=== PATIENT | female | born 1950 | race Two or more races ===

== ENCOUNTER 2017-07-01 20:37 | Emergency (ER) | payer MEDICARE ==
[2017-07-01] MEDS ORDERED: predniSONE TAB* 20 MG PO ONE (21:39)
--- NOTE | 2017-07-01 21:39 | ED ---
Respiratory - HPI Summary HPI Summary: 67F presents with cough for 3 weeks. She states she was on an antibiotic (does not know name) and had no relief. She followed up with her PCP Monday and was switched to levaquin and has no relief with this. She admits to a productive cough and occasionally chills and fever. She admits to SOB and chest congestion. She admits to occasionally sinus congestion. She denies any sore throat or ear pain. She denies any abdominal pain, n/v. She is not DM and does not smoker. She states she has COPD and asthma and is on advair for such. She has been using her inhaler every 4 hours without relief. She states the cough has not improved over past 3 weeks and has gotten worst especially at night. She was never told she has pneumonia. - History of Current Complaint Chief Complaint: EDUpperRespComplaint Stated Complaint: DX BRONCHITIS/SOB/COUGH/WHEEZING Time Seen by Provider: 07/01/17 21:25 Pain Intensity: 5 - Allergy/Home Medications Allergies/Adverse Reactions: Allergies Allergy/AdvReac Type Severity Reaction Status Date / Time No Known Allergies Allergy Verified 07/01/17 20:49 PMH/Surg Hx/FS Hx/Imm Hx Endocrine/Hematology History: Denies: Hx Diabetes, Hx Thyroid Disease Cardiovascular History: Reports: Hx Hypertension, Other Cardiovascular Problems/ Disorders - HIGH CHOLESTEROL ON MEDICATION Denies: Hx Pacemaker/ICD Respiratory History: Reports: Hx Asthma - mild Denies: Hx Chronic Obstructive Pulmonary Disease (COPD) GI History: Reports: Hx Irritable Bowel Denies: Hx Ulcer History: Denies: Hx Renal Disease Musculoskeletal History: Reports: Hx Tendonitis - LEFT SHOULDER Sensory History: Reports: Hx Cataracts, Hx Contacts or Glasses - GLASSES Denies: Hx Hearing Aid Opthamlomology History: Reports: Hx Cataracts, Hx Contacts or Glasses - GLASSES Psychiatric History: Reports: Hx Anxiety Denies: Hx Panic Disorder - Surgical History Surgery Procedure, Year, and Place: RIGHT ELBOW-[facility]. ORIF RIGHT ANKLE WITH PLATING AND SCREWS WERE REMOVED-[facility]. TUBAL LIGATION Hx Anesthesia Reactions: No Infectious Disease History: Denies: Hx Hepatitis, Hx Human Immunodeficiency Virus (HIV), History Other Infectious Disease, Traveled Outside the [place] in Last 30 Days - Family History Known Family History: Positive: Other - Maternal: [place] at age 72 as result of. - Social History Alcohol Use: Occasionally Substance Use Type: Reports: None Hx Tobacco Use: No Smoking Status (MU): Never Smoked Tobacco Review of Systems Positive: Fever Positive: Chest Pain - chest congestion Positive: Shortness Of Breath, Cough Negative: Abdominal Pain All Other Systems Reviewed And Are Negative: Yes Physical Exam Triage Information Reviewed: Yes Vital Signs On Initial Exam: Initial Vitals Temp Pulse Resp BP Pulse Ox 98.6 F 85 16 170/96 96 07/01/17 20:44 07/01/17 20:44 07/01/17 20:44 07/01/17 20:44 07/01/17 20:44 Vital Signs Reviewed: Yes Appearance: Positive: Well-Appearing Skin: Positive: Warm, Dry Head/Face: Positive: Normal Head/Face Inspection Eyes: Positive: Normal, EOMI, KANIKA, Conjunctiva Clear ENT: Positive: Normal ENT inspection, Pharynx normal, Nasal congestion, TMs normal Neck: Positive: Supple, Nontender, No Lymphadenopathy Respiratory/Lung Sounds: Positive: Breath Sounds Present, Wheezes Cardiovascular: Positive: Normal, RRR Diagnostics - Vital Signs Vital Signs Temp Pulse Resp BP Pulse Ox 07/01/17 20:44 98.6 F 85 16 170/96 96 - Laboratory Result Diagrams: 07/01/17 21:47 07/01/17 21:47 Lab Statement: Any lab studies that have been ordered have been reviewed, and results considered in the medical decision making process. - Radiology chest Xray Interpretation: No Acute Changes Radiology Interpretation Completed By: ED Physician Disposition - Course Course Of Treatment: 67F presents with cough for 3 weeks. She states she was on an antibiotic (does not know name) and had no relief. She followed up with her PCP Monday and was switched to levaquin and has no relief with this. She admits to a productive cough and occasionally chills and fever. She admits to SOB and chest congestion. She admits to occasionally sinus congestion. She denies any sore throat or ear pain. She denies any abdominal pain, n/v. She is not DM and does not smoker. She states she has COPD and asthma and is on advair for such. She has been using her inhaler every 4 hours without relief. She states the cough has not improved over past 3 weeks and has gotten worst especially at night. on exam has expiratory wheezes present. chest xray read as normal be me. wbc 12. lactic normal. will add on steriod even though inc risk of tendon rupture risk outweight benefit as patient not improving. will do for 5 days and have follow up with primary. gave cough medication and patient needs refill for advair. patient understands and agrees with plan. - Differential Dx - Cardiopulmonary Differential Diagnoses - Cardiopulmonary: Asthma, Bronchitis, Lower Resp Infection - Diagnoses Provider Diagnoses: Bronchitis, Asthma Discharge - Discharge Plan Condition: Good Disposition: HOME Prescriptions: Fluticasone-Salmeterol 500-50* [Advair Diskus 500-50*] 1 puff INH BID #1 diskus guaiFENesin/CODIEN 100MG-10MG* [Robitussin AC 100Mg-10Mg*] 5 ml PO Q6H PRN #100 ml MDD 20ml PRN Reason: Cough predniSONE TAB* [Deltasone TAB*] 60 mg PO DAILY #12 tab Patient Education Materials: Acute Bronchitis (ED) Referrals: Mekhi Pollack MD [Primary Care Provider] - Additional Instructions: Take cough medication 5ml (1 teaspoon) every 6 hours as needed cough, caution can make drowsy so start with at night only Take steriod once a day for 4 more days Use humidifier or place warm bowls of water around the room to prevent cough Cough can last up to 4 weeks Follow up with primary care physician in 5 days Return to ED if develop any new or worsening symptoms
[2017-07-01] MEDS ORDERED: Albuterol/Ipratropium NEB.SOL* Albuterol 2.5 MG/Ipratropium 0.5 MG 3 ML INH ONE (21:49)
[2017-07-01 22:12] LABS: Hematocrit 43 % (35-47); Hemoglobin 14.4 g/dl (12.0-16.0); Mean Corpuscular HGB Conc 34 g/dl (31-36); Mean Corpuscular Hemoglobin 30 pg (27-31); Mean Corpuscular Volume 89 fL (80-97); Mean Platelet Volume 9 um3 (7.4-10.4); Red Blood Count 4.79 10^6/ul (4.0-5.4); Red Cell Distribution Width 13 % (10.5-15)
[2017-07-01 22:30] LABS: Albumin 3.9 g/dL (3.2-5.2); BUN/Creatinine Ratio 19.5 (8-20); EGFR African American 89.4 (>60); EGFR Non-African American 69.5 (>60); Total Bilirubin 0.4 mg/dL (0.2-1.0); Total Protein 6.9 g/dL (6.4-8.9)
[2017-07-01] MEDS ORDERED: guaiFENesin/CODIEN 100MG-10MG* 5 ML UDC PO ONE (22:46)
[2017-07-01 22:50] LABS: Potassium 3.3 mmol/L (3.5-5.0)
--- NOTE | 2017-07-01 22:53 | RAD ---
INDICATION: Cough and fever. COMPARISON: Comparison is made with prior studies from August 14, 2014 and June 26, 2017. TECHNIQUE: Dual-energy PA and lateral views of the chest were obtained. FINDINGS: The heart is within normal limits in size. Mediastinal and hilar contours appear within normal limits. The lungs are slightly hyperinflated and clear. No pleural effusion is seen. IMPRESSION: NO EVIDENCE FOR ACTIVE CARDIOPULMONARY DISEASE.
[2017-07-01 23:18] VITALS: BP 154/87
== END 2017-07-01 23:17 | disposition home or self-care (01) ==
LOC: ED 20:37
DX: J45.909 Unspecified asthma, uncomplicated (principal); R05 Cough; R07.9 Chest pain, unspecified; R06.02 Shortness of breath; J40 Bronchitis, not specified as acute or chronic
CPT/HCPCS: 36415; 71020; 80053; 83605; 85025; 94640; 99283; A9270-GY; J7512

== ENCOUNTER 2017-12-30 06:31 | Emergency (ER) | payer MEDICARE ==
[2017-12-30] MEDS ORDERED: NS 0.9% 1000 ML* 1,000 ML IV ONE (06:40)
[2017-12-30] MEDS ORDERED: Magnesium Sulfate 1 GM IV* 1 GM/100 ML BAG IV ONE (06:40)
[2017-12-30] MEDS ORDERED: predniSONE TAB* 20 MG PO ONE (06:40)
[2017-12-30] MEDS ORDERED: Albuterol/Ipratropium NEB.SOL* Albuterol 2.5 MG/Ipratropium 0.5 MG 3 ML INH ONE (06:40)
--- NOTE | 2017-12-30 06:54 | ED ---
Betina Cottrell Emily, scribed for Boston Alvarado MD on 12/30/17 at 0645 . Shortness of Breath - HPI Summary HPI Summary: This patient is a 67 year old F presenting to [facility] with a chief complaint of SOB that began 2 days ago. The patient rates the pain 0/10 in severity. Symptoms aggravated by nothing. Symptoms alleviated by nothing. Patient reports wheezing and fever. Patient denies cough. Pt reports using an ipratropium nebulizer at home every three hours, with minimal affect to symptoms. Pt reports a hx of asthma and COPD. - History of Current Complaint Chief Complaint: EDShortnessOfBreath Hx Obtained From: Patient Onset/Duration: Sudden Onset, Lasting Days, Still Present Timing: Constant Current Severity: Mild Aggrevating Factors: Nothing Alleviating Factors: Nothing Associated Signs & Symptoms: Wheezing, Fever - Allergy/Home Medications Allergies/Adverse Reactions: Allergies Allergy/AdvReac Type Severity Reaction Status Date / Time No Known Allergies Allergy Verified 07/01/17 20:49 PMH/Surg Hx/FS Hx/Imm Hx Previously Healthy: No Endocrine/Hematology History: Denies: Hx Diabetes, Hx Thyroid Disease Cardiovascular History: Reports: Hx Hypertension, Other Cardiovascular Problems/ Disorders - HIGH CHOLESTEROL ON MEDICATION Denies: Hx Pacemaker/ICD Respiratory History: Reports: Hx Asthma - mild Denies: Hx Chronic Obstructive Pulmonary Disease (COPD) GI History: Reports: Hx Irritable Bowel Denies: Hx Ulcer History: Denies: Hx Renal Disease Musculoskeletal History: Reports: Hx Tendonitis - LEFT SHOULDER Sensory History: Reports: Hx Cataracts, Hx Contacts or Glasses - GLASSES Denies: Hx Hearing Aid Opthamlomology History: Reports: Hx Cataracts, Hx Contacts or Glasses - GLASSES Psychiatric History: Reports: Hx Anxiety Denies: Hx Panic Disorder - Surgical History Surgery Procedure, Year, and Place: RIGHT ELBOW-[facility]. ORIF RIGHT ANKLE WITH PLATING AND [place] [place] Hx Anesthesia Reactions: No Infectious Disease History: No Infectious Disease History: Denies: Hx Hepatitis, Hx Human Immunodeficiency Virus (HIV), History Other Infectious Disease, Traveled Outside the US in Last 30 Days - Family History Known Family History: Positive: Other - Maternal: [place] at age 72 as result of. - Social History Occupation: Employed Full-time Lives: With Family Alcohol Use: Occasionally Substance Use Type: Reports: None Hx Tobacco Use: No Smoking Status (MU): Never Smoked Tobacco Review of Systems Positive: Fever Positive: Shortness Of Breath, Other - Positive wheezing. Negative: Cough All Other Systems Reviewed And Are Negative: Yes Physical Exam - Summary Physical Exam Summary: Appearance: Well appearing, no pain distress Skin: warm, dry, reflects adequate perfusion Head/face: normal Eyes: EOMI, KANIKA ENT: normal Neck: supple, non-tender Respiratory: breath sounds present, Inspiratory wheezes. Expiratory wheezes globally. Decreased aeration globally. No rhonchi. No rales. Cardiovascular: pulses symmetrical, Tachycardic. Irregular. Abdomen: non-tender, soft Bowel: present Musculoskeletal: normal, strength/ROM intact, No bilateral pedal lower extremity edema. Neuro: normal, sensory motor intact, A&Ox3 Triage Information Reviewed: Yes Vital Signs On Initial Exam: Initial Vitals Temp Pulse Resp BP Pulse Ox 98.7 F 109 18 163/98 95 12/30/17 06:37 12/30/17 06:37 12/30/17 06:37 12/30/17 06:37 12/30/17 06:37 Vital Signs Reviewed: Yes Diagnostics - Vital Signs Vital Signs Temp Pulse Resp BP Pulse Ox 12/30/17 06:37 98.7 F 109 18 163/98 95 - Laboratory Lab Statement: Any lab studies that have been ordered have been reviewed, and results considered in the medical decision making process. Course/Dx - Course Course Of Treatment: Pt with diffuse wheezing -- no hx of admission for same. Started steroid. Gave IVF, magnesium. Sats well but tachy. - Diagnoses Provider Diagnoses: Acute asthma exacerbation Discharge - Discharge Plan Condition: Guarded Disposition: OTHER Discharge Disposition Comment: pt receiving nebs, IVs. Signed out to Dr. Armstrong at 7am Prescriptions: Albuterol 2.5MG/3ML (0.083%)* [Ventolin 2.5 MG/3 ML NEB.ANUSHKA*] 2.5 mg INH Q4H #1 box predniSONE TAB* [Deltasone TAB*] 50 mg PO DAILY #4 tab Referrals: Jose Luis Mcleod MD [Primary Care Provider] - The documentation as recorded by the Betina esparza Emily accurately reflects the service I personally performed and the decisions made by , Boston Alvarado MD.
[2017-12-30] MEDS ORDERED: Albuterol/Ipratropium NEB.SOL* Albuterol 2.5 MG/Ipratropium 0.5 MG 3 ML ONE (07:04)
--- OUTSIDE RECORDS SUMMARY | 2017-12-30 07:11 | XMS REPORT ---
:1950 External Reference #:[id number] Author Organization [facility] Address [address] [place] [address] Phone [phone] Care Team Providers Name Role Phone Jose Luis Mcleod MD Care Team Information Compliance Representative Unavailable Jose Luis Mcleod MD Primary Care Physician Unavailable Payers Type Date Identification Numbers Payment Provider Subscriber Health Maintenance Policy Number: [facility] Brice Marin [facility] ([facility]) [id number] PayID: [id number] [address] [place] [address] Medigap Part B Expires: 10/30/2016 Policy Number: [employer] [place]ice [place] [id number] PayID: [id number] [address] [place] [address] Problems Date Description Provider Status Onset: 12/01/2017 Essential hypertension John Clayton MD Active Onset: 12/01/2017 Pure hypercholesterolemia John Clayton MD Active Onset: 12/18/2017 Chronic allergic conjunctivitis Ana Avila, Active RPA-C Onset: 12/18/2017 Allergic rhinitis Ana Avila, Active RPA-C Onset: 12/18/2017 Allergic rhinitis due to pollen Ana Avila, Active RPA-C Onset: 12/01/2017 Uncomplicated moderate persistent John Clayton MD Active asthma Social History Type Date Description Comments Home Environment Has a window air conditioner Home Environment The basement is dry Home Environment Uses a dehumidifier Home Environment The floors are carpeted Home Environment The floors are tile Home Environment The floors are wood Home Environment [place] Heat Smoke-Free Home is smoke-free Pets 2 dogs Pets 1 cat Pets Animals sleep in bedroom Smoking No Second Hand Smoke Exposure Smoking Patient has never smoked Allergies, Adverse Reactions, Alerts Date Description Reaction Status Severity Comments 12/01/2017 NKDA active Medications Medication Date Status Form Strength Qnty SIG Indications Ordering Provider Levocetirizine 12/18 Active Tablets 5mg 30tab Take one J30.1 opher Dihydrochloride /2017 s tablet by Desean Clayton MD mouth daily at bedtime Nasonex 12/18 Active Suspension 50mcg/Act 17gm Lashmeet 2 J30.1 sprays in Desean Clayton MD each nostril by intranasa l route once daily. Pataday 12/18 Active Solution 0.2% 1bott Instill H10.45 le one drop Desean Clayton MD into both eyes once daily as needed Breo Ellipta 12/01 Active Aerosol 200-25mcg 60uni inhale J45.40 /Inh ts one puff Desean Clayton MD once a day Proair HFA 12/01 Active Aerosol 108(90Bas 8.500 2 puffs J45.40 e) gm every 4 Desean Clayton MD mcg/Act as needed Spiriva Respimat Active Aerosol 1.25mcg/A 12gm Inhale 2 Unknown /0000 ct puffs once daily. Simvastatin 00 Active Tablets 40mg 1 tab Unknown /0000 daily PO Lorazepam 00 Active Tablets 0.5mg 1 2x a Unknown /0000 day PO Losartan Active Tablets 50-12.5mg 1 tab Unknown Potassium/Hydroc /0000 daily PO hlorothiazide Ipratropium Active Solution 0.5-2.5(3 Unknown [place]/Albutero /0000 )mg/3ML l Sulfate Vitamin A Active Capsules 2400 Unknown /0000 Vitamin D3 0000 Active Tablets 5000Unit Unknown /0000 Advair HFA Hx Aerosol 115-21mcg Unknown /0000 /Act - 12/18 Proair HFA 00/ Hx Aerosol 108(90Bas Unknown /0000 e) - mcg/Act 12/18 Vital Signs Date Vital Result Comment 12/18/2017 BP Systolic 118 mmHg BP Diastolic 81 mmHg Height 61 inches 5'1" Weight 150.00 lb BMI (Body Mass Index) 28.3 kg/m2 Heart Rate 92 /min Respiratory Rate 18 /min Body Temperature 96.2 F O2 % BldC Oximetry 98 % 12/01/2017 Height 61 inches 5'1" Weight 150.00 lb BMI (Body Mass Index) 28.3 kg/m2 Results Test Date Test Result H/L Range Note Total IgE 12/01/2017 .Total IgE <pending> Procedures Date CPT Code Description Status 12/18/2017 40196 Allergy Tests Percutaneous W/ Allergenic Extracts Completed 12/18/2017 95037 Allergy Tests Percutaneous W/ Allergenic Extracts Completed 12/01/2017 55104 Nitric Oxide Gas Determination Completed 12/01/2017 38430 Allergy Tests Percutaneous W/ Allergenic Extracts Completed 12/01/2017 87162 Bronchodilation Responsiveness Spirometry Pre/Post Completed Bronchodil Adm Encounters Type Date Location Provider CPT E/M Dx Office Visit 12/18/2017 9:00a [place] ABELINO Montemayor [address] J30.1 J30.89 J45.40 H10.45 Office Visit 12/01/2017 1:00p [place] [address] J45.40 Plan of Care Future Appointment(s):06/18/2018 3:00 pm - ABELINO Montemayor at [id number]/18/2017 - MARCIA MontemayorCJ30.1 Allergic rhinitis due to pollenNew Medication:Levocetirizine Dihydrochloride 5 mgNasonex 50 mcg/ ActComments:Patient skin test positive to both tree pollens and weed pollens. I have discussed environmental controls for seasonal allergies. I will give Nasonex for daily prophylaxis of the nose. I will give Xyzal for breakthrough symptoms. I will also give Pazeo eye drops to use as needed for breakthrough eye itching. Patient is not interested in allergy immunotherapy at this time, but will consider injections if symptoms persist despite above treatment plan.Follow up:6 months.J30.89 Other allergic rhinitisComments:Discussed environmental controls for dogs.Follow up:6 months.J45.40 Moderate persistent asthma, uncomplicatedComments:I have reviewed how and when to use current inhalers. Written instructions provided to the patient today. Please use Breo and Spiriva daily as directed. Use ProAir (Albuterol) as needed for breakthrough coughing, wheezing and/or shortness of breath. Discontinue use of Advair. I will repeat PFT and NIOX at 6 month follow-up.Follow up:6 months -w/ PFT and NIOX prior to uwkqxY04.45 Other chronic allergic conjunctivitisNew Medication:Pataday 0.2 %Comments:Use Pataday eye drops as needed for breakthrough eye allergy symptoms.Follow up:6 months.
--- OUTSIDE RECORDS SUMMARY | 2017-12-30 07:12 | XMS REPORT ---
:1950 External Reference #:[id number] Author Organization [facility] Address [address] [place] [address] Phone [phone] Care Team Providers Name Role Phone Jose Luis Mcleod MD Care Team Information Hogshead Head Matcher Unavailable Jose Luis Mcleod MD Primary Care Physician Unavailable Payers Type Date Identification Numbers Payment Provider Subscriber Health Maintenance Policy Number: [facility] Brice [facility] ([facility]) [id number] PayID: [id number] [address] [place] [address] Medigap Part B Expires: 10/30/2016 Policy Number: [employer] [place] [id number] PayID: [id number] [address] [place] [address] Problems Date Description Provider Status Onset: 12/01/2017 Essential hypertension John Clayton MD Active Onset: 12/01/2017 Pure hypercholesterolemia John Clayton MD Active Onset: 12/01/2017 Uncomplicated moderate persistent John Clayton MD Active asthma Social History Type Date Description Comments Home Environment Has a window air conditioner Home Environment The basement is dry Home Environment Uses a dehumidifier Home Environment The floors are carpeted Home Environment The floors are tile Home Environment The floors are wood Home Environment [place] Smoke-Free Home is smoke-free Pets 2 dogs Pets 1 cat Pets Animals sleep in bedroom Smoking No Second Hand Smoke Exposure Smoking Patient has never smoked Allergies, Adverse Reactions, Alerts Date Description Reaction Status Severity Comments 12/01/2017 NKDA active Medications Medication Date Status Form Strength Qnty SIG Indications Ordering Provider Tristen Montez 12/01/ Active Aerosol 200-25mcg/ 60unit inhale J45.40 [place] 2017 Inh s one puff Desean Clayton MD once a day Proair HFA 12/01/ Active Aerosol 108(90Base 8.500g 2 puffs J45.40 [place] 2017 ) mcg/Act m every 4 Allie. MD [facility] as needed Advair HFA / Active Aerosol 115-21mcg/ Unknown 0000 Act Simvastatin 00/ Active Tablets 40mg 1 tab Unknown 0000 daily PO Lorazepam 00/ Active Tablets 0.5mg 1 2x a Unknown 0000 day PO Losartan / Active Tablets 50-12.5mg 1 tab Unknown Potassium/Hydr 0000 daily PO ochlorothiazid e Ipratropium / Active Solution 0.5-2.5(3) Unknown [place] 0000 mg/3ML rol Sulfate Vitamin A / Active Capsules 2400 Unknown 0000 Vitamin D3 / Active Tablets 5000Unit Unknown 0000 Spiriva 00// Hx Aerosol 1.25mcg/Ac Unknown Respimat 0000 - t 2017 Proair HFA / Hx Aerosol 108(90Base Unknown 0000 - ) mcg/Act 2017 Vital Signs Date Vital Result Comment 12/18/2017 [...] <pending> Procedures Date CPT Code Description Status 12/01/2017 03787 Nitric Oxide Gas Determination Completed 12/01/2017 21080 Allergy Tests Percutaneous W/ Allergenic Extracts Completed 12/01/2017 91824 Bronchodilation Responsiveness Spirometry Pre/Post Completed Bronchodil Adm Encounters Type Date Location Provider CPT E/M Dx Office Visit 12/01/2017 1:00p [place] [address] J45.40 Plan of Care 12/01/2017 - John Clayton MDJ45.40 Moderate persistent asthma, uncomplicatedNew Medication:Breo Ellipta 200-25 mcg/InhProair HFA 108(90 Base) mcg/Act
--- OUTSIDE RECORDS SUMMARY | 2017-12-30 07:12 | XMS REPORT ---
:1950 External Reference #:[id number] Author Organization [facility] Address [address] [place] [address] Phone [phone] Care Team Providers Name Role Phone Jose Luis Mcleod MD Care Team Information Senior Project Coordinator Unavailable Jose Luis Mcleod MD Primary Care Physician Unavailable Payers Type Date Identification Numbers Payment Provider Subscriber Medicare Primary Policy Number: [id number] [employer] [place] PayID: [id number] [address] [place] [address] Medigap Part B Policy Number: [id number] [facility] Brice Marin PayID: [id number] [address] [place] [address] Problems Date Description Provider Status Onset: 12/01/2017 [...] Environment The floors are wood Home Environment [place] Heat Smoke-Free Home is smoke-free Pets 2 dogs Pets 1 cat Pets Animals sleep in bedroom Smoking No Second Hand Smoke Exposure Smoking Patient has never smoked Allergies, Adverse Reactions, Alerts Date Description Reaction Status Severity Comments 12/01/2017 NKDA active Medications Medication Date Status Form Strength Qnty SIG Indications Ordering Provider Breo Ellipta 12/01/ Active Aerosol 200-25mcg/ 60unit inhale J45.40 John Sung Inh s one puff Desean Clayton MD once a day Proair HFA 12/01/ Active Aerosol 108(90Base 8.500g 2 puffs J45.40 John 2017 ) mcg/Act m every 4 Allie. MD [facility] as needed Advair HFA / Active Aerosol 115-21mcg/ Unknown 0000 Act Lorazepam / Active Tablets 0.5mg Unknown 0000 Losartan / Active Tablets 50-12.5mg Unknown Potassium/Hydr 0000 ochlorothiazid e Ipratropium / Active Solution 0.5-2.5(3) Unknown [place] 0000 mg/3ML rol Sulfate Proair HFA / Active Aerosol 108(90Base Unknown 0000 ) mcg/Act Vitamin A / Active Capsules 2400 Unknown 0000 Vitamin D3 / Active Tablets 5000Unit Unknown 0000 Spiriva / Hx Aerosol 1.25mcg/Ac Unknown Respimat 0000 - t 2017 Simvastatin / Hx Tablets 40mg Unknown 0000 - 2017 Vital Signs Date Vital Result Comment 12/01/2017 Height 61 inches 5'1" Weight 150.00 lb BMI (Body Mass Index) 28.3 kg/m2 Results Test Date Test Result H/L Range Note Total IgE 12/01/2017 .Total IgE <pending> Order 12/01/2017 Nitric Oxide <pending> PFT Supplies <pending> PFT With Bronchodilator <pending> Skin Test Seasonal and Environmental <pending> Procedures Date CPT Code Description Status 12/01/2017 07267 Nitric Oxide Gas Determination Completed 12/01/2017 38841 Allergy Tests Percutaneous W/ Allergenic Extracts Completed 12/01/2017 77844 Bronchodilation Responsiveness Spirometry Pre/Post Completed Bronchodil Adm Plan of Care 12/01/2017 - John Clayton MDJ45.40 Moderate persistent asthma, uncomplicatedNew Medication:Breo Ellipta 200-25 mcg/InhProair HFA 108(90 Base) mcg/Act
--- OUTSIDE RECORDS SUMMARY | 2017-12-30 07:12 | XMS REPORT ---
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 Jose Luis Mcleod MD Primary Care Physician Unavailable Payers Type Date Identification Numbers Payment Provider Subscriber Medicare Primary Policy Number: [id number] [employer] [place] Brice Marin PayID: [id number] [address] [place] [address] Medigap Part B Policy Number: [id number] [facility] Brice Marin PayID: [id number] [address] [place] [address] Problems Date Description Provider Status Onset: 12/01/2017 Essential hypertension John Clayton MD Active Onset: 12/01/2017 Pure hypercholesterolemia John Clayton MD Active Social History Type Date Description Comments Home Environment Has a window air conditioner Home Environment The basement is dry Home Environment Uses a dehumidifier Home Environment The floors are carpeted Home Environment The floors are tile Home Environment The floors are wood Home Environment [place] Smoke-Free Home is not smoke-free Pets 2 dogs Pets 1 cat Pets Animals sleep in bedroom Smoking No Second Hand Smoke Exposure Allergies, Adverse Reactions, Alerts Date Description Reaction Status Severity Comments 12/01/2017 NKDA active Medications Medication Date Status Form Strength Qnty SIG Indications Ordering Provider Spiriva Respimat Active Aerosol 1.25mcg/Act Unknown Advair HFA Active Aerosol 115-21mcg/Ac Unknown t Simvastatin Active Tablets 40mg Unknown 00 Lorazepam Active Tablets 0.5mg Unknown 00 Losartan Active Tablets 50-12.5mg Unknown Potassium/Hydroc 00 hlorothiazide Ipratropium Active Solution 0.5-2.5(3)mg Unknown [place]/Albutero 00 /3ML l Sulfate Proair HFA Active Aerosol 108(90Base) Unknown 00 mcg/Act Vitamin A Active Capsules 2400 Unknown 00 Vitamin D3 Active Tablets 5000Unit Unknown 00 Vital Signs Date Vital Result Comment 12/01/2017 Height 61 inches 5'1" Weight 150.00 lb BMI (Body Mass Index) 28.3 kg/m2 Results Description No Information Procedures Description No Information Plan of Care No Information Available
[2017-12-30] MEDS ORDERED: Albuterol 2.5 MG/3 ML NEB.SOL* (0.083%) INH ONE (08:16)
[2017-12-30 08:28] VITALS: BP 129/66
[2017-12-30] MEDS ORDERED: Albuterol HFA INHALER* 8 gm MDI INH ONE (09:40)
--- NOTE | 2017-12-30 10:59 | ED ---
I, Heather Ruano, scribed for Osman Armstrong MD on 12/30/17 at 0939 . Progress - Progress Note Progress Note: This pt was a sign out from Dr. Alvarado at shift change pending respiratory treatment. Course/Dx - Course Course Of Treatment: . Christiano Shift: Pt with diffuse wheezing -- no hx of admission for same. Started steroid. Gave IVF, magnesium. Sats well but tachy. Ms. Marin was signed out to me with medications ordered. I saw her about 0800 after her first two nebs and steroids. She was still C/O some SOB and had some mild expiratory wheezes. I gave her an albuterol nebulizer and about 45 minutes after that, we ambulated her about the department with her sats intact. She had no wheezes at that time. - Diagnoses Provider Diagnoses: Acute asthma exacerbation The documentation as recorded by the kennyibeAlden Stephanie accurately reflects the service I personally performed and the decisions made by me, Osman Armstrong MD.
== END 2017-12-30 09:49 ==
LOC: ED 06:31
DX: J45.901 Unspecified asthma with (acute) exacerbation (principal)
CPT/HCPCS: 94640; 94760; 96374; 99283; A9270-GY; J3475; J7512

== ENCOUNTER 2018-10-28 08:39 | Emergency (ER) | payer MEDICARE ==
[2018-10-28 08:49] VITALS: BP 130/81
--- NOTE | 2018-10-28 09:09 | UC ---
Respiratory Complaint HPI - HPI Summary HPI Summary: 68-year-old woman comes to clinic today with a chief complaint of cough chest congestion wheezing and feeling ill for a little more than a week. Patient does have a history of asthma and when she takes her albuterol does help with the breathing. She's been having a lot of coughing it's been keeping her up at night. There is some yellow to the sputum. Overall she does feel slightly short of breath with that does improve with the albuterol. She does have chest pain with the coughing. No radiation of the chest pain into the arm or neck. No pedal edema. Has had chills no recent fevers measured. - History of Current Complaint Chief Complaint: UCRespiratory Stated Complaint: RESP COMPLAINT Time Seen by Provider: 10/28/18 08:56 Pain Intensity: 8 - Allergies/Home Medications Allergies/Adverse Reactions: Allergies Allergy/AdvReac Type Severity Reaction Status Date / Time mold Allergy Eyes Verified 10/28/18 08:49 Itchy/Swollen/Red/Watery pet dander Allergy Eyes Uncoded 10/28/18 08:49 Itchy/Swollen/Red/Watery Home Medications: Home Medications Albuterol 2.5MG/3ML (0.083%)* [Ventolin 2.5 MG/3 ML NEB.ANUSHKA*] 1 unit INH ONCE PRN 10/28/18 [History Confirmed 10/28/18] PMH/Surg Hx/FS Hx/Imm Hx Previously Healthy: Yes Cardiovascular History: Hypertension Respiratory History: Asthma - Surgical History Surgical History: Yes Surgery Procedure, Year, and Place: RIGHT ELBOW-[facility]. ORIF RIGHT ANKLE WITH PLATING AND [place] [place] - Family History Known Family History: Positive: Other - Maternal: DE at age 72 as result of. - Social History Alcohol Use: Occasionally Substance Use Type: None Smoking Status (MU): Never Smoked Tobacco Review of Systems All Other Systems Reviewed And Are Negative: Yes Constitutional: Positive: Chills Skin: Positive: Negative Eyes: Positive: Negative ENT: Positive: Sore Throat, Nasal Discharge, Sinus Congestion Respiratory: Positive: Shortness Of Breath, Cough, Other - WHEEZING Cardiovascular: Positive: Chest Pain - WITH COUGH Gastrointestinal: Positive: Negative Motor: Positive: Negative Neurovascular: Positive: Negative Musculoskeletal: Positive: Negative Neurological: Positive: Negative Psychological: Positive: Negative Is Patient Immunocompromised?: No Physical Exam Triage Information Reviewed: Yes Appearance: No Pain Distress, Well-Nourished, Ill-Appearing - MILD Vital Signs: Initial Vital Signs Temp 99.2 F 10/28/18 08:44 Pulse 90 10/28/18 08:44 Resp 18 10/28/18 08:44 BP 130/81 10/28/18 08:44 Pulse Ox 98 10/28/18 08:44 Vital Signs Reviewed: Yes Eye Exam: Normal Eyes: Positive: Conjunctiva Clear ENT: Positive: Pharyngeal erythema, Nasal congestion, Nasal drainage, TMs normal Respiratory: Positive: Lungs clear, Normal breath sounds, No respiratory distress. Negative: Rhonchi, Wheezing Cardiovascular: Positive: RRR Musculoskeletal Exam: Normal Musculoskeletal: Positive: Strength Intact, ROM Intact, No Edema Neurological Exam: Normal Neurological: Positive: Alert, Muscle Tone Normal Psychological Exam: Normal Psychological: Positive: Age Appropriate Behavior Skin Exam: Normal UC Diagnostic Evaluation - Laboratory O2 Sat by Pulse Oximetry: 98 Respiratory Course/Dx - Course Course Of Treatment: DISCUSSED VIRAL VERSES BACTERIAL INFECTION AND THE ROLE OF ANTIBIOTICS. PATIENT HAS HX OF ASTHMA WHICH IS BEING WORSENENED BY THE BRONCHITIS. THE PATIENT WISHES TO BE ON ANTIBIOTIC AT THIS TIME. - Differential Dx/Diagnosis Provider Diagnosis: Bronchitis, Asthma Discharge - Sign-Out/Discharge Documenting (check all that apply): Patient Departure All imaging exams completed and their final reports reviewed: No Studies - Discharge Plan Condition: Stable Disposition: HOME Prescriptions: Albuterol 2.5MG/3ML (0.083%)* [Ventolin 2.5 MG/3 ML NEB.ANUSHKA*] 2.5 mg INH Q6H # 30 neb.anushka Azithromycin TAB* [Zithromax TAB (Z-KATHRINE) 250 mg #6 tabs] 2 tab PO .TODAY, THEN 1 DAILY #1 kathrine Benzonatate CAP* [Tessalon 100 MG CAP*] 100 mg PO TID PRN #20 cap PRN Reason: Cough Patient Education Materials: Asthma (ED), Acute Bronchitis (ED) Forms: *Work Release Referrals: Jose Luis Mcleod MD [Primary Care Provider] - Additional Instructions: FOLLOW UP WITH YOUR DOCTOR IF NOT COMPLETELY IMPROVED. GET RECHECKED FOR ANY WORSENING OF YOUR CONDITION OR QUESTIONS OR CONCERNS. - Billing Disposition and Condition Condition: STABLE Disposition: Home
== END 2018-10-28 09:19 | disposition home or self-care (01) ==
LOC: UCEAST 08:39
DX: J40 Bronchitis, not specified as acute or chronic (principal); J45.909 Unspecified asthma, uncomplicated; I10 Essential (primary) hypertension; Z91.048 Other nonmedicinal substance allergy status; Z79.899 Other long term (current) drug therapy
CPT/HCPCS: 99212; G0463

== ENCOUNTER 2019-07-02 07:56 | Emergency (ER) | payer MEDICARE ==
--- NOTE | 2019-07-02 08:15 | ED ---
HPI Chest Pain - HPI Summary HPI Summary: The patient is a 69 y/o F presenting to [facility] with a chief complaint of chest tightness with associated dizziness and nausea beginning 06/30/19 with continuation of nausea and dizziness into today 07/02/19. She reports that she woke up on 06/30/2019 morning and went into the kitchen to start making breakfast and felt dizzy with nausea, but she continued to make waffles with syrup and took her BP medications and nausea medication believed to be Famotidine. She then sat down but had an episode of vomiting. She laid down and checked her BP, but it stayed elevated up to 180 mmHg (SBP). There was improvement in the SBP to 144 mmHg. She was concerned for dehydration so she drank plenty of water and Gatorade. She wasnt experiencing chest pain, but she did have mid-sternal chest tightness radiating to the left anterior and left side lasting approximately 2 minutes. The dizziness and nausea continued the following day (yesterday 07/01/19) with a new onset slight headache but without chest tightness. She drank coffee and self-administered Ibuprofen to gradual relief of symptoms throughout the night but had difficulty sleeping last night with palpitations beginning around [id number] this morning but without any chest tightness since the single episode two days ago. She additionally notes chills last night and left arm discomfort possibly secondary to her sleep position. She denies any calf pain. She has experiencing similar symptoms before but has no hx of RI, but she is currently concerned for RI secondary to her symptoms. Currently, she is not in any pain, including chest tightness, but she states my head is in a cloud. She notes that her usual SBP is 139 mmHg. She also reports that she hasn't taken her potassium yet today. PMHx: HTN, HLD, asthma, COPD, anxiety, orthopedic surgeries. FHx: fatal RI (mother age 72). Nonsmoker, occasional EtOH, no substance use. Vital signs while in room: HR 75 bpm, BP 136/93 mmHg, O2 sat 97%; Second BP in room is 147/85 mmHg CARDIAC RISK: (+) HTN, (-) DM, (+) HLD, (+) FHx maternal age 72, (-) Smoking Home Medications Medication Instructions Recorded Confirmed Type Fluticasone/Vilanterol MDI(NF) 70 mg PO DAILY 07/02/19 07/02/19 History [Breo Ellipta MDI 200/25(NF)] LORazepam [Lorazepam] 0.5 mg PO BID 07/02/19 07/02/19 History Losartan/HCTZ 100/25 (NF) [Hyzaar 1 tab PO DAILY 07/02/19 07/02/19 History 100/25 (NF)] Potassium Chlor TAB 20 MEQ* 10 meq PO DAILY 07/02/19 07/02/19 History Simvastatin [Zocor] 40 mg PO DAILY 07/02/19 07/02/19 History - History of Current Complaint Hx Obtained From: Patient Onset/Duration: Started Days Ago - 06/30/19, Still Present - nausea, dizziness, Resolved Timing: Intermittent - nausea, dizziness for last two days, Lasting Minutes - two Initial Severity: Moderate Current Severity: None Pain Intensity: 0 Pain Scale Used: 0-10 Numeric Chest Pain Location: Mid Sternal Chest Pain Radiates: Yes Chest Pain Radiates To:: Other - left chest Character: Tightness Aggravating Factor(s): Other: - sitting to erect Alleviating Factor(s): Position - lying down, Ibuprofen Associated Signs and Symptoms: Positive: Chest Pain - tightness (resolved), Headaches - slight (resolved), Dizziness, Chills, Nausea, Palpitations - resolved, Vomiting - one episode, Other: - left arm pain. Negative: Calf Pain/ Swelling - Risk Factors AMI/ACS Risk Factors: Family History, Hypertension, Dyslipidemia - Allergy/Home Medications Allergies/Adverse Reactions: Allergies Allergy/AdvReac Type Severity Reaction Status Date / Time mold Allergy Eyes Verified 07/02/19 08:07 Itchy/Swollen/Red/Watery pet dander Allergy Eyes Uncoded 07/02/19 08:07 Itchy/Swollen/Red/Watery Home Medications: Home Medications Fluticasone/Vilanterol MDI(NF) [Breo Ellipta MDI 200/25(NF)] 70 mg PO DAILY 01/15 [History Confirmed 07/02/19] LORazepam [Lorazepam] 0.5 mg PO BID 07/02/19 [History Confirmed 07/02/19] Losartan/HCTZ 100/25 (NF) [Hyzaar 100/25 (NF)] 1 tab PO DAILY 07/02/19 [History Confirmed 07/02/19] Potassium Chlor TAB 20 MEQ* 10 meq PO DAILY 07/02/19 [History Confirmed 07/02/19 ] Simvastatin [Zocor] 40 mg PO DAILY 07/02/19 [History Confirmed 07/02/19] PMH/Surg Hx/FS Hx/Imm Hx Previously Healthy: No Endocrine/Hematology History: Denies: Hx Diabetes, Hx Thyroid Disease Cardiovascular History: Reports: Hx Hypercholesterolemia, Hx Hypertension Denies: Hx Pacemaker/ICD Respiratory History: Reports: Hx Asthma - mild, Hx Chronic Obstructive Pulmonary Disease (COPD) GI History: Reports: Hx Irritable Bowel Denies: Hx Ulcer History: Denies: Hx Renal Disease Musculoskeletal History: Reports: Hx Tendonitis - LEFT SHOULDER Sensory History: Reports: Hx Cataracts, Hx Contacts or Glasses - GLASSES Denies: Hx Hearing Aid Opthamlomology History: Reports: Hx Cataracts, Hx Contacts or Glasses - GLASSES Psychiatric History: Reports: Hx Anxiety Denies: Hx Panic Disorder - Surgical History Surgical History: Yes Surgery Procedure, Year, and Place: RIGHT ELBOW-[facility]. ORIF RIGHT ANKLE WITH PLATING AND SCREWS WERE REMOVED-[facility] [place] TUBAL LIGATION Hx Anesthesia Reactions: No Infectious Disease History: Denies: Hx Hepatitis, Hx Human Immunodeficiency Virus (HIV), History Other Infectious Disease - Family History Known Family History: Positive: Cardiac Disease - Maternal: RI at age 72 as result of. - Social History Alcohol Use: Occasionally Hx Substance Use: No Substance Use Type: Reports: None Hx Tobacco Use: No Smoking Status (MU): Never Smoked Tobacco Review of Systems Positive: Chills Positive: Palpitations - resolved, Other - chest tightness in mid-sternal area radiating to left side, resolved Respiratory: Negative Positive: Vomiting - one episode, Nausea - resolved Positive: no symptoms reported Positive: Other - Positive: left arm pain. Negative: calf pain. Skin: Negative Neurological: Other - dizziness Positive: Headache - "slight" (resolved) Psychological: Normal All Other Systems Reviewed And Are Negative: Yes Physical Exam - Summary Physical Exam Summary: Appearance: well-appearing, minimal dizziness at time of presentation, well- nourished Skin: Warm, color reflects adequate perfusion, dry Head: Normal Head/Face inspection, atraumatic Eyes: Conjunctiva clear ENT: Normal inspection Neck: Supple, no nodes, no JVD Respiratory: Lungs clear, normal breath sounds, no respiratory distress Cardio: RRR, No murmur, pulses normal, brisk capillary refill Abdomen: Soft, nontender Bowel sounds: Present Musculoskeletal: Strength Intact/ROM intact, no calf tenderness, no edema. Psychological: Normal Neuro: Alert, muscle tone normal, no focal deficit Triage Information Reviewed: Yes Vital Signs Reviewed: Yes Procedures - Sedation Patient Received Moderate/Deep Sedation with Procedure: No Diagnostics - Laboratory Result Diagrams: 07/02/19 08:19 07/02/19 08:19 Lab Statement: Any lab studies that have been ordered have been reviewed, and results considered in the medical decision making process. - Radiology CXR Radiology Interpretation Completed By: Radiologist Summary of Radiographic Findings: Impression: No active cardiopulmonary disease. ED physician has reviewed this report. - EKG 0800 Cardiac Rate: NL - 78 bpm EKG Rhythm: Sinus Rhythm ST Segment: Non-Specific Ectopy: None EKG Comparison: No Significant Change - c/w 01/01/15 Summary of EKG Findings: An EKG at 0800 reveals nml AV/IV CT, nml QTc, and nml axis. No acute changes. ED MD has reviewed and interpreted this EKG. Re-Evaluation - Re-Evaluation First Eval Re-Evaluation Time: 10:42 Change: Unchanged Comment: Denies CP, SOB, left arm pain. We discussed all results and plan for discharge home. Chest Pain Course/Dx - Course Course Of Treatment: Pt medications reviewed this visit. Nurses notes reviewed. Allergies noted. High blood pressure noted. Pt is a 69 y/o F with cc of dizziness and nausea beginning 06/30/2019 with an episode of mid-sternal chest tightness radiating to the left side of the chest lasting for approximately 2 minutes. She has not experienced the chest tightness since the initial episode. She came for an evaluation today with continued dizziness, nausea, hypertensive episodes, and palpitations. Cardiac risk for hypertension, hyperlipidemia, and family history of RI. Upon physical exam, the patient presents wtih minimal dizziness. IV fluids for mild dehydration and ASA administered for left arm discomfort, possible anginal equivalent. EKG at 0800 reveals NSR at 78 bpm without any acute changes and no change c/w/ 01/01/15. Chest x-ray is negative for active cardiopulmonary disease. Only one troponin is necessary since the last episode of chest tightness was two days ago. Aware of critical lactic acid of 2.6 at 0854. Troponin is 0.00. Potassium is 3.2 likely secondary to the patient being on a diuretic and not taking her potassium medication yet today, so we will administer potassium. We discussed all results and plan for discharge home with follow up with her Dr. Mcleod, her PCP. She understands and agrees with this plan. She remains without CP, left arm pain, palpitations, SOB, dizziness at time of discharge and BP is in fair control. - Chest Pain Differential Diagnosis/HQI/PQRI: Acute RI, ACS, Angina, Chest Wall, GI Disease, Lower Respiratory Infection - Diagnoses Provider Diagnoses: Chest tightness, Palpitations, Dizziness, Dehydration, mild, Hypokalemia, Hypertension, poor control Discharge ED - Sign-Out/Discharge Documenting (check all that apply): Patient Departure - Patient will be discharged home. Patient Received Moderate/Deep Sedation with Procedure: No - Discharge Plan Condition: Stable Disposition: HOME Patient Education Materials: Chest Pain (ED), Heart Palpitations (ED), Hypokalemia (ED), Dizziness (ED) Forms: *Work Release Referrals: Jose Luis Mcleod MD [Primary Care Provider] - 2 Days Additional Instructions: Dr. Torres evaluated you for a possible heart attack today, and with your last chest tightness on 06/30/19, she was comfortable discharging you with an EKG that did not show a heart attack and also the blood test troponin that was negative. You chest xray was normal and Dr. Torrse gave you a copy of that also. We gave you aspirin 324mg in the ER, and also potassium and magnesium while you were in the ER. The potassium was 3.2 so that is low enough that you should also take your potassium today when you get home. Dr. Torres also gave you a liter of IV normal saline fluids to treat any possible dehydration. Your blood pressure was not terribly elevated while here today, so do continue your blood pressure medication, and the elevated blood pressure may have been the cause of your palpitations. Continue to follow your blood pressures at home also. Have definite follow up with Dr. Mcleod for him to evaluate you and determine if you need further testing. Return to the emergency department for any new or worsening symptoms. - Billing Disposition and Condition Condition: STABLE Disposition: Home - Attestation Statements Document Initiated by Scribe: Yes Documenting Scribe: Sindhu Krishnan Provider For Whom Scribe is Documenting (Include Credential): Dr. Aminah Torres MD Scribe Attestation: I, Sindhu Krishnan scribed for Dr. Aminah Torres MD on 08/18/19 at 1214. Scribe Documentation Reviewed: Yes Provider Attestation: The documentation as recorded by the Sindhu esparza accurately reflects the service I personally performed and the decisions made by me, Dr. Aminah Torres MD Status of Scribe Document: Viewed
[2019-07-02 08:39] LABS: ABS Basophils 0.1 10^3/ul (0-0.2); ABS Eosinophils 0.2 10^3/ul (0-0.6); ABS Lymphocytes 2.4 10^3/ul (1.0-4.8); ABS Monocytes 0.5 10^3/ul (0-0.8); ABS Neutrophils 5.2 10^3/ul (1.5-7.7); Eosinophil % 2.3 %; Hematocrit 43 % (35-47); Hemoglobin 14.7 g/dL (12.0-16.0); Lymphocyte % 28.5 %; Mean Corpuscular HGB Conc 34 g/dL (31-36); Mean Corpuscular Hemoglobin 31 pg (27-31); Mean Corpuscular Volume 90 fL (80-97); Mean Platelet Volume 8.7 fL (7.4-10.4); Nucleated Red Blood Cells % 0.1; Platelet Count 256 10^3/uL (150-450); Red Cell Distribution Width 14 % (10-15); White Blood Count 8.4 10^3/uL (3.5-10.8)
--- OUTSIDE RECORDS SUMMARY | 2019-07-02 08:39 | XMS REPORT | Continuity of Care Document ---
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 Active Problems Provider Date Essential hypertension John Clayton MD Onset: 12/01/2017 Pure hypercholesterolemia John Clayton MD Onset: 12/01/2017 Chronic allergic conjunctivitis ABELINO Montemayor Onset: 2017 Allergic rhinitis ABELINO Montemayor Onset: 12/18/2017 Allergic rhinitis due to pollen ABELINO Montemayor Onset: 2017 Uncomplicated moderate persistent John Clayton MD Onset: 12/01/2017 asthma Social History Type Date Description Comments Sex Unknown Tobacco Use Start: Unknown No Second Hand Smoke Exposure Tobacco Use Start: Unknown Patient has never smoked Smoking Status Reviewed: 06/26/19 Patient has never smoked Allergies, Adverse Reactions, Alerts Description No Known Drug Allergies Medications Active Medications SIG Qnty Indications Ordering Provider Date Breo Ellipta inhale one puff 60units J45.40 Christopher AJuvenal 12/01/2017 once a day [facility] 200-25mcg/Inh Aerosol Proair HFA 2 puffs every 4 8.500gm J45.40 Christopher A. 12/01/2017 as needed [facility] 108(90Base) mcg/Act Aerosol Spiriva Respimat inhale 2 puffs 12gm Christopher A. once daily. MD [facility] 1.25mcg/Act Aerosol Simvastatin 1 tab daily PO Unknown 40mg Tablets Lorazepam 1 2x a day PO Unknown 0.5mg Tablets Losartan 1 tab daily PO Unknown Potassium/Hydrochlor othiazide 50-12.5mg Tablets Ipratropium Unknown [place]/Albuterol Sulfate 0.5-2.5(3)mg/3ML Solution Vitamin A Unknown 2400 Capsules Vitamin D3 Unknown 5000Unit Tablets Potassium Chloride Unknown ER 10Meq Capsules ER Fosamax 1 by mouth Unknown 70mg Tablets qwkly Immunizations Description No Information Available Vital Signs Date Vital Result Comment 06/26/2019 10:04am BP Systolic 114 mmHg BP Diastolic 56 mmHg Height 61 inches 5'1" Weight 162.00 lb BMI (Body Mass Index) 30.6 kg/m2 Heart Rate 78 /min Respiratory Rate 16 /min O2 % BldC Oximetry 96 % 12/24/2018 9:23am BP Systolic 130 mmHg BP Diastolic 80 mmHg Height 61 inches 5'1" Weight 156.00 lb BMI (Body Mass Index) 29.5 kg/m2 Heart Rate 90 /min Respiratory Rate 18 /min O2 % BldC Oximetry 98 % Results Description No Information Available Procedures Description No Information Available Medical Devices Description No Information Available Encounters Description No Information Available Assessments Description No Information Available Plan of Treatment No Information Available Functional Status Description No Information Available Mental Status Description No Information Available Referrals Description No Information Available
--- OUTSIDE RECORDS SUMMARY | 2019-07-02 08:39 | XMS REPORT | Continuity of Care Document ---
:1950 External Reference #:[id number] Author Name ABELINO Montemayor (transmitted by agent of provider John Clayton) Address [address] [address] Care Team Providers Name Role Phone Jose Luis Mcleod MD - Family Medicine Care Team Information Art Specialist Problems Active Problems Provider Date Essential hypertension [...] Medications SIG Qnty Indications Ordering Provider Date Azelastine HCL instill 1 drop 1units H10.45 Leoncioophtriny Anton 06/26/2019 (Ophthalmic) into affected [facility] eye(s) by 0.05% Solution ophthalmic route 2 times per day as needed. Flonase Allergy spray 2 puffs 15.800ml J30.1 Christopher AJuvenal 06/26/2019 Relief into each nostril [facility] 50mcg/Act once daily. Suspension Cetirizine HCL take one tablet 30tabs J30.1 Christopher A. 06/26/2019 by mouth every [facility] 10mg Tablets day at bedtime Breo Ellipta inhale one puff 28units J45.40 Christopher A. 12/01/2017 once a day [facility] 200-25mcg/Inh Aerosol Proair HFA 2 puffs every 4 8.500gm J45.40 Christopher A. 12/01/2017 as needed MD [facility] 108(90Base) mcg/Act Aerosol Spiriva Respimat inhale 2 puffs 12gm Christopher A. once daily. [facility] 1.25mcg/Act Aerosol Simvastatin 1 tab daily PO Unknown 40mg Tablets Lorazepam 1 2x a day PO Unknown 0.5mg Tablets Losartan 1 tab daily PO Unknown Potassium/Hydrochl orothiazide 50-12.5mg Tablets Ipratropium Unknown [place]/Albuterol Sulfate 0.5-2.5(3)mg/3ML Solution Vitamin A Unknown 2400 Capsules Vitamin D3 Unknown 5000Unit Tablets Potassium Chloride Unknown ER 10Meq Capsules ER Fosamax 1 by mouth qwkly Unknown 70mg Tablets Immunizations Description No Information Available Vital Signs [...] O2 % BldC Oximetry 98 % Results Test Date Facility Test Result H/L Range Note Order 06/26/2019 [facility] Nitric Oxide <pending> PFT Supplies <pending> PFT With Bronchodilator <pending> Procedures Date Code Description Status 06/26/2019 51021 Nitric Oxide Gas Determination Completed 06/26/2019 43456 Bronchodilation Responsiveness Spirometry Pre/Post Completed Bronchodil Adm Medical Devices Description No Information Available Encounters Type Date Location Provider Dx Diagnosis Office Visit 06/26/2019 [place] Ana Marques J45.40 Moderate persistent 10:00a Fenst[place]acher, asthma, uncomplicated RPA-C J30.1 Allergic rhinitis due to pollen J30.89 Other allergic rhinitis H10.45 Other chronic allergic conjunctivitis Assessments Date Code Description Provider 06/26/2019 J45.40 Moderate persistent asthma, Ana Marques [place]st[place]acher, RPA-C uncomplicated 06/26/2019 J30.1 Allergic rhinitis due to pollen Ana SJuvenal Hargrovestermacher, RPA -C 06/26/2019 J30.89 Other allergic rhinitis Ana WalkerJuvenal Ortizermacher, RPA-C 06/26/2019 H10.45 Other chronic allergic conjunctivitis Ana Avila, RPA-C Plan of Treatment Future Appointment(s):12/25/2019 10:00 am - [facility] at [id number]/26/2019 - Ana WalkerJuvenal Avila RPA-CJ45.40 Moderate persistent asthma, uncomplicatedComments:Patient with stable asthma. Today's PFT is within normal limits. Patient was not able to complete NIOX. I will continue Breo as directed. Patient would like to trial off of Spiriva. I have advised her to monitor symptoms and restart Spiriva immediately if she develops increased coughing, wheezing, chest tightness and/or shortness of breath.Follow up:6 months - w/PFT and NIOX prior to [id number] Allergic rhinitis due to pollenNew Medication:Flonase Allergy Relief 50 mcg/Act - spray 2 puffs into each nostril once daily.Cetirizine HCL 10 mg - take one tablet by mouth every day at bedtimeComments:Patient with poorly controlled allergic rhinitis. I will give Flonase for daily prophylaxis of the nose. Continue Zyrtec as prescribed. Patient is not interested in immunotherapy at this time.Follow up:6 months.J30.89 Other allergic rhinitisComments:Continue environmental controls for dust, dust mites and pets.H10.45 Other chronic allergic conjunctivitisNew Medication:Azelastine HCL (Ophthalmic) 0.05 % - instill 1 drop into affected eye (s) by ophthalmic route 2 timesper day as needed.Comments:Use Azelastine eye drops as needed for breakthrough eye allergy symptoms.Follow up:6 months. Functional Status Description No Information Available Mental Status Description No Information Available Referrals Description No Information Available
[2019-07-02 08:43] LABS: INR 1.01 (0.82-1.09)
[2019-07-02] MEDS ORDERED: NS 0.9% 1000 ML** 1,000 ML BOLUS SCH (08:45)
[2019-07-02 08:53] LABS: Albumin 4.2 g/dL (3.2-5.2); Albumin/Globulin Ratio 1.4 (1-3); BUN/Creatinine Ratio 19.7 (8-20); Calcium 9.3 mg/dL (8.6-10.3); EGFR African American 98.8 (>60); EGFR Non-African American 81.6 (>60); Globulin 2.9 g/dL (2-4); Potassium 3.2 mmol/L (3.5-5.0); Total Bilirubin 0.6 mg/dL (0.2-1.0); Total Protein 7.1 g/dL (6.4-8.9)
[2019-07-02 08:53] LABS: Magnesium 1.9 mg/dL (1.9-2.7)
[2019-07-02] MEDS ORDERED: Aspirin 81 mg CHEW TAB* 81 MG TAB.CHEW PO ONE (08:55)
[2019-07-02 09:08] LABS: CKMB ng/mL 2.2 ng/mL (0.6-6.3)
[2019-07-02 09:11] LABS: Activated Partial Thrombo Time 35.6 seconds (26.0-38.0)
[2019-07-02] MEDS ORDERED: Potassium Chlor TAB* 20 MEQ TAB.ER PO ONE (10:18)
[2019-07-02] MEDS ORDERED: Magnesium Oxide TAB* 400 MG PO ONE (10:25)
[2019-07-02 10:55] VITALS: BP 141/87
== END 2019-07-02 10:59 | disposition home or self-care (01) ==
LOC: ED 07:56
DX: R07.9 Chest pain, unspecified (principal); R00.2 Palpitations; R42 Dizziness and giddiness; E86.0 Dehydration; E87.6 Hypokalemia; I10 Essential (primary) hypertension; E78.00 Pure hypercholesterolemia, unspecified; J44.9 Chronic obstructive pulmonary disease, unspecified; F41.9 Anxiety disorder, unspecified; Z79.899 Other long term (current) drug therapy
CPT/HCPCS: 36415; 71045; 80053; 82550; 82553; 83605; 83735; 83880; 84484; 85025; 85379; 85610; 85730; 93005; 96360; 96361; 99283; A9270-GY